=== PATIENT | male | born 1970 | race Two or more races ===

== ENCOUNTER 2021-06-26 10:03 | Emergency (ER) | payer OTHER ==
[~2021-06-26] VITALS: Ht 177.8 cm; Wt 81.6 kg
[2021-06-26] MEDS ORDERED: LIDOCAINE 5% TOPICAL PATCH TOP ONE (11:15)
[2021-06-26] MEDS ORDERED: diazePAM 2 MG TAB PO ONE (11:15)
[2021-06-26] MEDS ORDERED: KETOROLAC TROMETH 60MG/2ML VIAL IM ONE (11:15)
[2021-06-26 15:18] LABS: Urine Bacteria NONE SEEN /hpf (None Seen); Urine Blood Negative /uL (Negative); Urine Mucus FEW (None Seen); Urine Specific Gravity 1.042 (1.001-1.035); Urine WBC 1 /hpf (0 - 3)
[2021-06-26 18:03] VITALS: BP 130/79
== END 2021-06-26 18:05 | disposition home or self-care (01) ==
LOC: ER 10:03
DX: S33.5XXA Sprain of ligaments of lumbar spine, initial encounter (principal); X50.1XXA Overexertion from prolonged static or awkward postures, initial encounter; Y93.89 Activity, other specified; Y92.89 Other specified places as the place of occurrence of the external cause; Y99.8 Other external cause status
CPT/HCPCS: 72100; 81001; 96372; 99284; J1885

== ENCOUNTER 2021-07-10 11:54 | Emergency (ER) | payer OTHER ==
[~2021-07-10] VITALS: Ht 177.8 cm; Wt 72.6 kg
[2021-07-10] MEDS ORDERED: SODIUM CHLORIDE 0.9% 1,000 ML IV ONE (12:15)
[2021-07-10 12:18] VITALS: BP 133/73
[2021-07-10 12:56] LABS: Basophils # (auto) 0 10 ^3/uL (0-0.2); Basophils % (auto) 0.3 % (0.0-2.0); Eosinophils # (auto) 0.3 10 ^3/uL (0-0.8); Eosinophils % (auto) 4.4 % (0.0-7.0); Hemoglobin 14.8 g/dL (13.5-17.5); Lymphocytes # (auto) 2.2 10 ^3/uL (0.4-5.4); Lymphocytes % (auto) 31.4 % (10.0-50.0); Mean Corpuscular Hemoglobin 31.7 pg (28.0-32.0); Mean Corpuscular Hgb Conc. 34.5 g/dL (32.0-36.0); Mean Corpuscular Volume 91.9 fL (80.0-100.0); Monocytes # (auto) 0.6 10 ^3/uL (0-1.3); Monocytes % (auto) 8.8 % (0.0-12.0); Neutrophils # (auto) 3.8 10 ^3/uL (1.6-8.6); Neutrophils % (auto) 55.1 % (37.0-80.0); Nucleated Red Blood Cells % 0.1 %; Red Blood Cells 4.67 10^6/uL (4.5-5.90); Red Cell Distribution Width 13.6 % (11.8-14.3)
[2021-07-10 13:15] LABS: INR 1.01 (0.9-1.15); Partial Thromboplastin Time 30.1 sec (23.6-33.0)
[2021-07-10 13:48] LABS: Chloride 106 mmol/L (98-107); Potassium 3.8 mmol/L (3.5-5.1); Sodium 140 mmol/L (136-145)
[2021-07-10 13:57] LABS: Alanine Aminotransferase 32 U/L (16-61); Albumin 3.1 g/dL (3.4-5.0); Alkaline Phosphatase 83 U/L (45-117); Anion Gap 8 (5-15); Aspartate Aminotransferase 24 U/L (15-37); BUN/Creatinine Ratio 16.7; Bilirubin, Total 0.7 mg/dL (0.2-1.0); Blood Urea Nitrogen 14 mg/dL (7-18); Calcium 8.3 mg/dL (8.5-10.1); Carbon Dioxide 26 mmol/L (21-32); GFR African American 124 mL/min; GFR Non-African American 103 mL/min; Glucose 94 mg/dL (74-106)
== END 2021-07-10 13:40 | disposition left against medical advice (07) ==
LOC: ER 11:54
DX: L02.01 Cutaneous abscess of face (principal)
CPT/HCPCS: 36415; 71045; 80053; 84484; 85025; 85610; 85730; 93005; 96360; 96361; 99285; J7030